=== PATIENT | female | born 1965 | race African-American/Black ===

== ENCOUNTER 2016-10-11 07:27 | Emergency (ER) | payer OTHER ==
[~2016-10-11 07:27] MED LIST: A/B OTIC15 ML; ADV100/50 INH; AMBIEN5 MG PO; ATROVENT H0.017 MG/1 IH; DEX; ELAVIL25 MG PO; LAC PO; LEVAQUIN750 MG PO; MEDDP PO; NEU300 PO; NEXIUM40 MG PO; NOR10T PO; NORCO1 TA2 PO; PHECL PO; PREDNISONE1 MG PO; PREDNISONE10 MG PO; PREDNISONE20 MG PO; PROMETH; PROVENTIL0.09 MG/A1 IH; PROVENTIL0.09 MG/A1 INH; SING10 PO; VERIPRED 220 MG/5 ML PO; XARELTO10 M1 PO; ZOFRAN ODT4 MG SL
[2016-10-11 08:33] LABS: microscopic required? NO
[2016-10-11 08:56] LABS: urine erythrocyte NEGATIVE (NEGATIVE)
[2016-10-11 10:30] LABS: BASOPHIL % 0.5 % (0-2); PLATELET COUNT 236 x10^3mcL (130-400)
[2016-10-11 10:34] LABS: CALCIUM 8.8 mg/dL (8.5-10.1); CARBON DIOXIDE 28.5 mmol/L (21-32); CHLORIDE SERUM 108 mmol/L (98-107); CREATININE SERUM 0.6 mg/dL (0.6-1.0); GFR1 > 60 mL/min; GLUCOSE SERUM 79 mg/dL (74-106); POTASSIUM SERUM 3.8 mmol/L (3.5-5.1); SODIUM SERUM 143 mmol/L (136-145)
[2016-10-11 10:38] LABS: ALKALINE PHOSPHATASE 75 U/L (46-116); ALT/SGPT 15 U/L (14-59); AST/SGOT 11 U/L (15-37); BILIRUBIN TOTAL 0.3 mg/dL (0.20-1.00); LIPASE 104 IU/L (73-393); TOTAL PROTEIN, SERUM 6.6 g/dL (6.4-8.2)
[2016-10-11 10:42] LABS: ALBUMIN 3.3 g/dL (3.4-5.0)
[2016-10-11 12:37] VITALS: BP 120/76
== END 2016-10-11 12:37 | disposition home or self-care (01) ==
LOC: ED 07:27
PROVIDERS: Emergency Medicine
DX: K86.1 Other chronic pancreatitis (principal); K86.81 Exocrine pancreatic insufficiency; J45.909 Unspecified asthma, uncomplicated; J44.9 Chronic obstructive pulmonary disease, unspecified; Z88.0 Allergy status to penicillin; Z88.8 Allergy status to other drugs, medicaments and biological substances
CPT/HCPCS: J1885; J2270; J2405; J7030; Q0092

== ENCOUNTER 2016-10-26 11:34 | Inpatient (IN) | payer OTHER ==
[~2016-10-26] VITALS: Ht 160 cm; Wt 83.3 kg
[2016-10-26 12:55] LABS: UA SPECIFIC GRAVITY >=1.030 (1.005-1.035); microscopic required? YES; urine erythrocyte TRACE (NEGATIVE)
[2016-10-26 12:56] LABS: BASOPHIL % 1.2 % (0-2); PLATELET COUNT 269 x10^3mcL (130-400)
[2016-10-26 13:09] LABS: CALCIUM 9.2 mg/dL (8.5-10.1); CARBON DIOXIDE 30.6 mmol/L (21-32); CHLORIDE SERUM 107 mmol/L (98-107); CREATININE SERUM 0.8 mg/dL (0.6-1.0); GFR1 > 60 mL/min; GLUCOSE SERUM 118 mg/dL (74-106); POTASSIUM SERUM 3.4 mmol/L (3.5-5.1); SODIUM SERUM 143 mmol/L (136-145)
[2016-10-26 13:13] LABS: ALBUMIN 3.4 g/dL (3.4-5.0); ALKALINE PHOSPHATASE 71 U/L (46-116); ALT/SGPT 17 U/L (14-59); AMYLASE 110 U/L (25-115); AST/SGOT 13 U/L (15-37); BILIRUBIN TOTAL 0.35 mg/dL (0.20-1.00); LIPASE 646 IU/L (73-393); TOTAL PROTEIN, SERUM 6.5 g/dL (6.4-8.2)
[2016-10-26] MEDS ORDERED: NEU300 PO (13:56)
[2016-10-26] MEDS ORDERED: ADVAIR DISKUS 51 AER INH (13:56)
[2016-10-26] MEDS ORDERED: ALBUTEROL1.25 MG/3 NEB (13:56)
[2016-10-26] MEDS ORDERED: NOR10T PO (13:57)
[2016-10-26] MEDS ORDERED: AMBIEN5 MG PO (13:57)
[2016-10-26] MEDS ORDERED: NEXIUM20 MG PO (13:57)
[2016-10-26 14:27] LABS: PHOSPHOROUS 3.3 mg/dL (2.5-4.9)
[2016-10-26 14:29] LABS: CHOLESTEROL/HDL RATIO 2.9
[2016-10-26 14:35] LABS: FREE T4 1.12 ng/dL (0.76-1.46); FREE THYROXINE INDEX 2.9 ug/dL (1.4-4.5); T4(THYROXINE) 8.5 ug/dL (4.7-13.3)
[2016-10-26 15:04] LABS: T3 TOTAL 1.18 ng/mL
[2016-10-26 15:10] VITALS: BP 117/72
[2016-10-26 15:14] VITALS: BP 117/72
[2016-10-26 15:26] LABS: LACTIC DEHYDROGENASE (LDH) 132 U/L (100-190)
[2016-10-26 15:35] LABS: AMPHETAMINE QUAL UR NONE DETECTED (NEG <=1000)
[2016-10-26 20:42] VITALS: BP 125/75
[2016-10-27 05:27] VITALS: BP 100/49
[2016-10-27 07:32] LABS: BASOPHIL % 0.4 % (0-2); PLATELET COUNT 274 x10^3mcL (130-400); RED CELL DISTRIBUTION WIDTH 14.1 % (11.5-14.5)
[2016-10-27 07:49] LABS: CALCIUM 9.3 mg/dL (8.5-10.1); CARBON DIOXIDE 30.1 mmol/L (21-32); CHLORIDE SERUM 110 mmol/L (98-107); CREATININE SERUM 0.8 mg/dL (0.6-1.0); GFR1 > 60 mL/min; GLUCOSE SERUM 84 mg/dL (74-106); MAGNESIUM 2.1 mg/dL (1.8-2.4); POTASSIUM SERUM 4.1 mmol/L (3.5-5.1); SODIUM SERUM 144 mmol/L (136-145)
[2016-10-27 09:07] VITALS: BP 114/70
[2016-10-27 16:59] VITALS: BP 107/68
[2016-10-27 22:00] VITALS: BP 97/60
[2016-10-28 06:08] VITALS: BP 93/53
[2016-10-28 06:29] LABS: BASOPHIL % 0.6 % (0-2); PLATELET COUNT 248 x10^3mcL (130-400); RED CELL DISTRIBUTION WIDTH 13.6 % (11.5-14.5)
[2016-10-28 06:36] LABS: CALCIUM 8.6 mg/dL (8.5-10.1); CARBON DIOXIDE 22.8 mmol/L (21-32); CHLORIDE SERUM 106 mmol/L (98-107); CREATININE SERUM 0.6 mg/dL (0.6-1.0); GFR1 > 60 mL/min; GLUCOSE SERUM 65 mg/dL (74-106); MAGNESIUM 1.6 mg/dL (1.8-2.4); PHOSPHOROUS 3.7 mg/dL (2.5-4.9); POTASSIUM SERUM 3.9 mmol/L (3.5-5.1); SODIUM SERUM 140 mmol/L (136-145)
[2016-10-28 10:00] VITALS: BP 117/69
[2016-10-28] MEDS ORDERED: PAN PO (10:16)
[2016-10-28 12:04] VITALS: BP 117/69
== END 2016-10-28 12:51 | disposition home or self-care (01) | DRG 439 ==
LOC: ED 11:34 → DU 13:45 → MU 13:45 → DU 15:21 → MU 10-27 09:34
PROVIDERS: Emergency Medicine; ADMIT Family Medicine
DX: K85.90 Acute pancreatitis without necrosis or infection, unspecified (principal); F11.20 Opioid dependence, uncomplicated; E87.6 Hypokalemia; K86.1 Other chronic pancreatitis; K86.81 Exocrine pancreatic insufficiency; E87.8 Other disorders of electrolyte and fluid balance, not elsewhere classified; F12.10 Cannabis abuse, uncomplicated; F13.10 Sedative, hypnotic or anxiolytic abuse, uncomplicated; J44.9 Chronic obstructive pulmonary disease, unspecified; J45.909 Unspecified asthma, uncomplicated; Z68.32 Body mass index [BMI] 32.0-32.9, adult; Z86.711 Personal history of pulmonary embolism; Z87.891 Personal history of nicotine dependence; Z91.19 Patient's noncompliance with other medical treatment and regimen
CPT/HCPCS: 76770; 80307; 83880; 84439; G0480; J1450; J1885; J2270; J2405; J3475; J3535; J7030; Q0092

== ENCOUNTER 2016-11-06 05:37 | Emergency (ER) | payer OTHER ==
[~2016-11-06 05:37] MED LIST changes: +ADVAIR DISKUS 51 AER INH; +ALBUTEROL1.25 MG/3 NEB; +NEXIUM20 MG PO; +PAN PO
[2016-11-06 06:30] LABS: BASOPHIL % 1.5 % (0-2); PLATELET COUNT 271 x10^3mcL (130-400); RED CELL DISTRIBUTION WIDTH 14.5 % (11.5-14.5)
[2016-11-06 06:37] LABS: CARBON DIOXIDE 31.2 mmol/L (21-32); CHLORIDE SERUM 109 mmol/L (98-107); CREATININE SERUM 0.7 mg/dL (0.6-1.0); GFR1 > 60 mL/min; GLUCOSE SERUM 106 mg/dL (74-106); POTASSIUM SERUM 3.6 mmol/L (3.5-5.1); SODIUM SERUM 144 mmol/L (136-145)
[2016-11-06 06:41] LABS: ALBUMIN 3.4 g/dL (3.4-5.0); ALKALINE PHOSPHATASE 69 U/L (46-116); ALT/SGPT 17 U/L (14-59); AMYLASE 73 U/L (25-115); AST/SGOT 11 U/L (15-37); BILIRUBIN TOTAL 0.22 mg/dL (0.20-1.00); LIPASE 227 IU/L (73-393); TOTAL PROTEIN, SERUM 6.2 g/dL (6.4-8.2)
[2016-11-06 07:43] VITALS: BP 129/93
== END 2016-11-06 07:43 | disposition home or self-care (01) ==
LOC: ED 05:37
PROVIDERS: Emergency Medicine
DX: R10.9 Unspecified abdominal pain (principal); R11.10 Vomiting, unspecified; R19.7 Diarrhea, unspecified; Z88.0 Allergy status to penicillin; Z88.8 Allergy status to other drugs, medicaments and biological substances; Z87.19 Personal history of other diseases of the digestive system
CPT/HCPCS: 83880; J0780; J1200; J3010; J7030